=== PATIENT | male | born 1940 | race Caucasian/White ===

== ENCOUNTER → 2017-01-11 | Outpatient (CLI) | payer OTHER ==
[2017-01-11 07:37] LABS: HEMOGLOBIN A1C 6.42 % (4.2-6.0)
[2017-01-11 07:45] LABS: CALCIUM 8.9 mg/dL (8.7-10.7)
[2017-01-11 07:57] LABS: CREATININE, URINE 132.4 MG/DL (15-500)
[2017-01-11 08:10] LABS: CHOL/HDL RATIO 3.73 RATIO (0-4.0); LDL CHOLESTEROL,CALCULATED 72.6 mg/dL
== END ==
LOC: LAB 07:09
PROVIDERS: ATTEND Nurse Practitioner Family
DX: E11.9 Type 2 diabetes mellitus without complications (principal); E78.5 Hyperlipidemia, unspecified; I10 Essential (primary) hypertension; Z12.5 Encounter for screening for malignant neoplasm of prostate
CPT/HCPCS: 36415; 80048; 82043; 82247; 82465; 82550; 82977; 83036; 83718; 84075; 84450; 84460; 84478; G0103

== ENCOUNTER → 2017-01-22 | Outpatient (CLI) | payer OTHER | LOC: MMPC 09:00 | PROVIDERS: ATTEND Nurse Practitioner Family | DX: E11.9 Type 2 diabetes mellitus without complications (principal); E78.5 Hyperlipidemia, unspecified; I10 Essential (primary) hypertension | CPT/HCPCS: 99214 ==